=== PATIENT | male | born 1985 | race Caucasian/White ===

== ENCOUNTER → 2017-01-21 | Outpatient (CLI) | payer OTHER ==
--- NOTE | 2017-01-21 09:16 | XR ---
EXAMINATION TYPE: XR chest 2V DATE OF EXAM: 01/21/2017 9:07 AM COMPARISON: NONE HISTORY: Ventricular tachycardia, COPD TECHNIQUE: Frontal and lateral views of the chest are obtained. FINDINGS: There is no focal air space opacity, pleural effusion, or pneumothorax seen. The cardiac silhouette size is within normal limits. The osseous structures are intact. IMPRESSION: No acute cardiopulmonary process.
[2017-01-24 12:06] LABS: Alternaria alternata IgE <0.35 kU/L (<0.35); Asperg. fumagatus IgE <0.35 kU/L (<0.35); Asperg. fumagatus IgE Class CLASS 0; Cat Epith & Dander IgE <0.35 kU/L (<0.35); Cat Epith & Dander IgE Class CLASS 0; Clad herbarum IgE <0.35 kU/L (<0.35); Clad herbarum IgE Class CLASS 0; Com. Pigweed IgE <0.35 kU/L (<0.35); Com. Pigweed IgE Class CLASS 0; Common Ragweed IgE Class CLASS 0; Cow's Milk IgE Class CLASS 0; Dermato. farinae IgE <0.35 kU/L (<0.35); Dermato. farinae IgE Class CLASS 0; House Dust (Greer) IgE <0.35 kU/L (<0.35); House Dust (Greer) IgE Class CLASS 0; Maple (Box Elder) IgE <0.35 kU/L (<0.35); Maple (Box Elder) IgE Class CLASS 0; Penicillium notatum IgE Class CLASS 0; Timothy Grass IgE <0.35 kU/L (<0.35); Timothy Grass IgE Class CLASS 0
[2017-01-27 14:49] LABS: Mis test requested (Blood) Hypersens.PneumoEval
== END ==
LOC: RADXRMAIN 08:53
PROVIDERS: ATTEND Internal Medicine Sleep Medicine
DX: J44.9 Chronic obstructive pulmonary disease, unspecified (principal); B44.89 Other forms of aspergillosis
CPT/HCPCS: 71020; 82785; 86001; 86003; 86606; 86609

== ENCOUNTER → 2018-02-20 | Outpatient (CLI) | payer OTHER ==
--- NOTE | 2018-02-20 19:27 | ECHOF ---
Referral Reason:I47.2 Ventricular Tachyarrythemia MEASUREMENTS -------- HEIGHT: 175.3 cm WEIGHT: 108.9 kg BP: 159/98 RVIDd: 3.0 cm (< 3.3) IVSd: 1.3 cm (0.6 - 1.1) LVIDd: 4.7 cm (3.9 - 5.3) LVPWd: 1.3 cm (0.6 - 1.1) IVSs: 1.6 cm LVIDs: 2.8 cm LVPWs: 1.6 cm LAESV Index (A-L): 19.43 ml/m Ao Diam: 4.1 cm (2.0 - 3.7) AV Cusp: 2.2 cm (1.5 - 2.6) EPSS: 0.6 cm MV E Lawrence: 0.83 m/s MV DecT: 244 ms MV A Lawrence: 0.58 m/s MV E/A Ratio: 1.42 MV EF SLOPE: 133.91 mm/s (70 - 150) MV EXCURSION: 2.43 cm (> 18.000) FINDINGS -------- Sinus rhythm. This was a technically adequate study. The left ventricular size is normal. There is mild concentric left ventricular hypertrophy. Overa ll left ventricular systolic function is normal with, an EF between 55 - 60 %. The right ventricle is normal in size and function. Normal LA size by volume 22+/-6 ml/m2. The right atrium is normal in size. The aortic valve is bicuspid. There is mild aortic valve sclerosis. There is [id number] aor tic regurgitation. There is no evidence of aortic stenosis. Mild mitral regurgitation is present. Redundant anterior mitral valve leaflet. Trace tricuspid regurgitation present. Right ventricular systolic pressure is normal at < 35 mmHg. There is no evidence of pulmonary hypertension. Trace/mild (physiologic) pulmonic regurgitation. The aortic root is mildy dilated up to 4.1 cm. IVC Not well visulized. There is no pericardial effusion. CONCLUSIONS -------- 1. Sinus rhythm. 2. This was a technically adequate study. 3. The left ventricular size is normal. 4. There is mild concentric left ventricular hypertrophy. 5. Overall left ventricular systolic function is normal with, an EF between 55 - 60 %. 6. Normal LA size by volume 22+/-6 ml/m2. 7. The aortic valve is bicuspid. 8. There is mild aortic valve sclerosis. 9. Mild mitral regurgitation is present. 10. Redundant anterior mitral valve leaflet. 11. Trace tricuspid regurgitation present. 12. Right ventricular systolic pressure is normal at < 35 mmHg. 13. There is no evidence of pulmonary hypertension. 14. Trace/mild (physiologic) pulmonic regurgitation. 15. The aortic root is mildy dilated up to 4.1 cm. 16. IVC Not well visulized. 17. There is no pericardial effusion. PROGRAMMING SPECIALIST: David Campbell RDCS
== END | disposition home or self-care (01) ==
LOC: RADECHMAIN 15:19
PROVIDERS: ATTEND Internal Medicine Cardiovascular Disease
DX: Q23.1 Congenital insufficiency of aortic valve (principal); I47.2 Ventricular tachycardia
CPT/HCPCS: 93306

== ENCOUNTER → 2018-05-05 | Outpatient (CLI) | payer OTHER ==
[2018-05-06 03:05] LABS: Ragweed,Common IgE <0.10 kU/L
[2018-05-06 03:09] LABS: Alternaria alternata IgE <0.10 kU/L; Birch IgE <0.10 kU/L; Cat Epith & Dander IgE <0.10 kU/L; Cockroach IgE <0.10 kU/L; Dermato. farinae IgE <0.10 kU/L; Dog Dander IgE <0.10 kU/L; Elm IgE <0.10 kU/L; Immunoglobulin E <1.00 IU/mL (0.00-114.00); Maple (Box Elder) IgE <0.10 kU/L; Oak IgE <0.10 kU/L; Red Top (Bentgrass) IgE <0.10 kU/L
[2018-05-06 03:14] LABS: Clam IgE <0.10 kU/L; Codfish IgE <0.10 kU/L; Egg White IgE <0.10 kU/L; Immunoglobulin E <1.00 IU/mL (0.00-114.00); Peanut IgE <0.10 kU/L; Scallop IgE <0.10 kU/L; Shrimp IgE <0.10 kU/L; Soybean IgE <0.10 kU/L; Walnut IgE (Food) <0.10 kU/L
== END | disposition home or self-care (01) ==
LOC: LABWHC1 15:14
PROVIDERS: ATTEND Nurse Practitioner Adult Health
DX: T78.49XA Other allergy, initial encounter (principal)
CPT/HCPCS: 36415; 82785; 86003

== ENCOUNTER → 2018-05-25 | Outpatient (CLI) | payer OTHER ==
--- NOTE | 2018-05-25 14:37 | CT ---
EXAMINATION TYPE: CT abdomen pelvis w con DATE OF EXAM: 05/25/2018 COMPARISON: NONE HISTORY: 32 year-old male shortness of breath and periumbilical pain TECHNIQUE: Contiguous axial scanning of the abdomen and pelvis following administration of 100 ml Iso kacey 300 IV contrast. Delayed images through the kidneys and coronal/sagittal reconstructions perform ed. CT DLP: 2642 mGycm Automated exposure control for dose reduction was used. FINDINGS: Lower thorax reported separately. Liver mildly enlarged measuring 19.3 cm. Low attenuation suggest underlying fatty infiltration. The v enous system is patent. No biliary ductal dilatation. Gallbladder, adrenal glands, kidneys with retroaortic left renal vein, spleen, and pancreas appear wi thin normal limits. No dilated small bowel, free fluid, or free air. Appendix not clearly visualized. No secondary findings of acute appendicitis. Minimal stool burden. Of note, there is focal inflammation along the proximal sigmoid colon with a curvilinear area of cont rast density and focal outpouching suggesting an inflamed diverticulum. Mild to moderate surrounding fat stranding but no free fluid or free air. This is located just deep to the infraumbilical midline. Scattered nonenlarged and borderline prominent mesenteric lymph nodes measure up to 7 mm. Bladder urine distended. Minimal central prostatic calcifications. No abnormal fluid collection in th e pelvis or pelvic lymphadenopathy. Bones: Degenerative disc disease L5-S1 and also within the visualized thoracic spine. IMPRESSION: 1. FOCAL ACUTE DIVERTICULITIS AT THE MID SIGMOID. THERE IS [id number] INFLAMMATION BUT NO FREE FLUID, ABSCESS, OR FREE AIR. 2. HEPATOMEGALY (19.3 CM) WITH HEPATIC STEATOSIS. A Pershing level critical message alert has been initiated for Jerilyn Kelley MD via the [employer] Critical Results System on 05/25/2018 2:35 PM. This message alert has been sent to Jerilyn faulkner MD via the preferences provided by the clinician for the receipt of Radiology Critical Findings. Message ID [id number].
[2018-05-30 23:40] LABS: Alternaria Alternata IgG 4.3 mcg/mL (< 13.6); Aspergillus fumigatus IgG Not detected (Not detected); Aureobasidium pullulans IgG 10.2 mcg/mL (< 13.6); Cladosporium herbarium IgG 36.5 mcg/mL (< 14.7); Phoma ssp. IgG 5.2 mcg/mL (< 6.6); Saccaharomospora viridis Not detected (Not detected); Saccaharopoly. rectivirgula Not detected (Not detected)
== END | disposition home or self-care (01) ==
LOC: RADCTMAIN 12:00
PROVIDERS: ATTEND Internal Medicine Critical Care Medicine
DX: K57.32 Diverticulitis of large intestine without perforation or abscess without bleeding (principal); K76.0 Fatty (change of) liver, not elsewhere classified; R06.00 Dyspnea, unspecified; R05 Cough
CPT/HCPCS: 36415; 74177; 86001; 86606; 86609

== ENCOUNTER → 2018-05-25 | Outpatient (CLI) | payer OTHER ==
--- NOTE | 2018-05-25 14:28 | CT ---
EXAMINATION TYPE: CT chest w con DATE OF EXAM: 05/25/2018 COMPARISON: Correlation radiograph 05/05/2018 HISTORY: 32-year-old male Dyspnea, shortness of breath TECHNIQUE: Contiguous axial scanning of the chest after the administration of 100 ml mL of Isovue 300 . Coronal/sagittal reconstructions performed. CT DLP: DLP with A/PmGycm. Automatic exposure control utilized for a dose reduction. FINDINGS: Heart normal size without pericardial effusion. Unable to exclude the possibility of a bicuspid aortic valve, axial image 35. Aorta is normal caliber with a variant direct takeoff of the left vertebral artery directly from the aortic arch. Some residual thymic tissue is present in the anterior mediastinum. No thoracic lymphadenopathy. A subcutaneous loop recorder present over the left anterior chest. No consolidation or pleural effusion. Nonspecific 3 mm subpleural pulmonary nodule peripheral left ba se. In a low risk patient, no further follow-up is needed. Abdomen reported separately. Bones: Mild degenerative disc disease throughout the thoracic spine. IMPRESSION: 1. Unable to exclude the possibility of a bicuspid aortic valve. Left chest wall loop recorder. 2. No acute pulmonary process. 3. Abdomen and pelvis reported separately.
== END | disposition home or self-care (01) ==
LOC: RADCTMAIN 11:50
PROVIDERS: ATTEND Family Medicine
DX: R06.00 Dyspnea, unspecified (principal); R10.33 Periumbilical pain
CPT/HCPCS: 71260; Q9967

== ENCOUNTER → 2018-08-17 | Outpatient (CLI) | payer OTHER ==
--- NOTE | 2018-08-18 07:06 | US ---
EXAMINATION TYPE: US groin RT DATE OF EXAM: 08/17/2018 COMPARISON: CT 2018 CLINICAL HISTORY: R59.0 Localized Enlarged Lymph Node. Right groin palpable x 1 month US right groin: multiple lymph nodes noted at patient's c/o palpable with largest node seen inferiorl y = 4.2 x 2.1 x 1.3cm. IMPRESSION: Right groin adenopathy.
== END ==
LOC: RADUSWWP 16:49
PROVIDERS: ATTEND Family Medicine
DX: R59.0 Localized enlarged lymph nodes (principal)

== ENCOUNTER → 2018-09-01 | Outpatient (CLI) | payer OTHER ==
--- NOTE | 2018-09-02 13:52 | CT ---
EXAMINATION TYPE: CT pelvis w con DATE OF EXAM: 09/01/2018 COMPARISON: CT abdomen pelvis dated 05/25/2018. HISTORY: Right groin enlarged lymph node. CT DLP: 1201 mGycm Automated exposure control for dose reduction was used. CONTRAST: Standard CT of the pelvis with intravenous contrast was performed. Performed with IV Contrast, patien t injected with 100 mL of Isovue 300. FINDINGS: Centrally within the pelvis, moved posteriorly from the prior CT there is a central fat attenuated pr obable epiploic appendage without inflammatory fat stranding seen on series 3 image 40 and 41. The previously seen borderline mesenteric lymph nodes appear slightly smaller than on the prior now m easuring 6 mm as opposed to 7 mm. No greater than 1 cm short axis lymph node is identified. These mes enteric lymph nodes may have been reactive to the previously seen inflammatory change on the prior CT . No new adenopathy is appreciated. In the visualized portions of the liver there is decreased attenuation relating to hepatic steatosis. And the visualized portion of the uncinate process there is a tiny low density 3 mm lesion on series 3 image 5 that is stable from the prior. No ductal dilatation. The visualized portions of the remaini ng viscera appear grossly unremarkable. Bowel is nondilated. Urinary bladder is unremarkable. Osseous structures appear intact with degenerative changes of the lumbosacral spine that are mild. A very sm all fat filled umbilical hernia is incidentally seen. IMPRESSION: 1. SLIGHT DECREASE IN SIZE OF THE BORDERLINE MESENTERIC LYMPH NODES. NO SUSPICIOUS FINDINGS CURRENTLY . THESE MAY HAVE RELATED TO REACTIVE LYMPH NODES FROM PREVIOUSLY SEEN INFLAMMATORY CHANGE ON THE PRIO R CT. 2. PRESUMED SEQUELA OF PRIOR EPIPLOIC APPENDICITIS WITH NO CURRENT INFLAMMATORY CHANGE. 3. SUBCENTIMETER PANCREATIC UNCINATE PROCESS LESION FAVORED TO REPRESENT A SIDEBRANCH IPMN, HOWEVER M ASSISTANT PROFESSOR OF NURSING IS RECOMMENDED FOR FULL CHARACTERIZATION. 4. PARTIAL VISUALIZATION OF HEPATIC STEATOSIS.
== END | disposition home or self-care (01) ==
LOC: RADCTMAIN 13:54
PROVIDERS: ATTEND Surgery Plastic and Reconstructive Surgery
DX: R59.1 Generalized enlarged lymph nodes (principal); Z88.8 Allergy status to other drugs, medicaments and biological substances
CPT/HCPCS: 72193; Q9967

== ENCOUNTER → 2018-09-20 | Outpatient (CLI) | payer OTHER ==
--- NOTE | 2018-09-20 17:13 | XR ---
EXAMINATION TYPE: XR Hip Complete RT DATE OF EXAM: 09/20/2018 COMPARISON: NONE HISTORY: Right hip pain TECHNIQUE: 2 views FINDINGS: There is no sign of fracture nor dislocation. Joint spaces are normal. Sacroiliac joint caed ears normal. IMPRESSION: Normal right hip exam
== END | disposition home or self-care (01) ==
LOC: RADXRMAIN 16:36
PROVIDERS: ATTEND Family Medicine
DX: M25.551 Pain in right hip (principal)
CPT/HCPCS: 73502

== ENCOUNTER → 2019-02-15 | Outpatient (CLI) | payer OTHER ==
[2019-02-15 10:52] LABS: Basophils # (A) 0.1 k/uL (0-0.2); Basophils % (A) 1 %; Eosinophils # (A) 0.2 k/uL (0-0.7); Eosinophils % (A) 2 %; HCT 47.7 % (39.0-53.0); HGB 16.2 gm/dL (13.0-17.5); Lymphocytes # (A) 2.1 k/uL (1.0-4.8); Lymphocytes % (A) 30 %; MCH 28.8 pg (25.0-35.0); MCHC 33.9 g/dL (31.0-37.0); MCV 84.9 fL (80.0-100.0); Mean Platelet Volume 7.3; Monocytes # (A) 0.4 k/uL (0-1.0); Monocytes % (A) 5 %; Neutrophils # (A) 4.3 k/uL (1.3-7.7); Neutrophils % (A) 60 %; Platelet Count 230 k/uL (150-450); RBC 5.61 m/uL (4.30-5.90); RDW 13.2 % (11.5-15.5); WBC 7.2 k/uL (3.8-10.6)
[2019-02-15 10:58] LABS: INR 0.9 (<1.2); Partial Thromboplastin Time 22.1 sec (22.0-30.0); Prothrombin Time 9.7 sec (9.0-12.0)
[2019-02-15 11:02] LABS: Appearance,Urine Clear (Clear); Bilirubin,Urine Negative (Negative); Blood,Urine Negative (Negative); Color,Urine Yellow; Glucose,Urine (UA) Negative (Negative); Ketones,Urine Negative (Negative); Leukocyte Esterase,Urine Negative (Negative); Mucus,Urine Rare /hpf; Nitrite,Urine Negative (Negative); PH, Urine 5.5 (5.0-8.0); Protein,Urine 1+ (Negative); RBC,Urine <1 /hpf (0-5); Urobilinogen,Urine <2.0 mg/dL (<2.0)
--- NOTE | 2019-02-15 14:24 | XR ---
EXAMINATION TYPE: XR chest 2V DATE OF EXAM: 02/15/2019 COMPARISON: Prior chest x-ray 01/21/2017 HISTORY: Presurgical TECHNIQUE: Frontal and lateral views of the chest are obtained. FINDINGS: Coronary is present over the left chest. There is no focal air space opacity, pleural effusion, or pn eumothorax seen. The cardiac silhouette size is within normal limits. The osseous structures are i ntact. IMPRESSION: No acute cardiopulmonary process.
[2019-02-15 16:48] LABS: Albumin 4.9 g/dL (3.80-4.90); Albumin/Globulin Ratio 2.45 (1.60-3.17); Anion Gap 10.9 mmol/L (4.00-12.00); Calcium 9.5 mg/dL (8.7-10.3); Carbon Dioxide 24.1 mmol/L (21.6-31.8); Potassium 4.3 mmol/L (3.5-5.5); Total Bilirubin 0.9 mg/dL (0.3-1.2); Total Protein 6.9 g/dL (6.2-8.2)
== END | disposition home or self-care (01) ==
LOC: LABWHC1 09:35
PROVIDERS: ATTEND Neurological Surgery
DX: Z01.818 Encounter for other preprocedural examination (principal); Z01.812 Encounter for preprocedural laboratory examination; M50.122 Cervical disc disorder at C5-C6 level with radiculopathy
CPT/HCPCS: 36415; 71046; 80053; 81001; 85025; 85610; 85730; 87070

== ENCOUNTER → 2019-04-12 | Outpatient (CLI) | payer OTHER ==
--- NOTE | 2019-04-12 13:57 | XR ---
Cervical spine with flexion and extension views HISTORY: Status post discectomy, cervical disc disorder with radiculopathy 8 views of the cervical spine No comparisons Patient is status post discectomy at C5-6. There is near anatomic alignment. Cervical vertebral kristy s show preserved height and bone mineralization. Multilevel spondylosis is present. Loss of disc at C 2-3, C3-4, C4-5. Minimal anterolisthesis grade 1 C5-6 is not significantly changed on flexion and ext ension views. No significant foraminal encroachment. IMPRESSION: Surgical follow-up.
== END | disposition home or self-care (01) ==
LOC: RADXRMAIN 11:54
PROVIDERS: ATTEND Neurological Surgery
DX: M50.122 Cervical disc disorder at C5-C6 level with radiculopathy (principal); Z98.890 Other specified postprocedural states
CPT/HCPCS: 72052

== ENCOUNTER → 2019-04-25 | Outpatient (CLI) | payer OTHER ==
--- NOTE | 2019-04-25 22:48 | MR ---
EXAMINATION TYPE: MR lumbar spine wo con DATE OF EXAM: 04/25/2019 COMPARISON: CT abdomen and pelvis May 25, 2018 HISTORY: Lumbar region radiculopathy per order. New back pain into bilateral lower extremities for 10 months per patient. TECHNIQUE: Multiplanar, multisequence imaging of the lumbar spine is performed without IV contrast. FINDINGS: Sagittal images of the lumbar spine show vertebral body heights and alignment to appear sat isfactory. There is disc desiccation with mild disc space narrowing and posterior disc herniations id entified at L2-L3 and L5-S1 levels. The conus medullaris is normal in position and signal ending inf erior L1 level. The bone marrow signal intensity is within normal limits. Mild multilevel anterior s purring is present. Axial images show the T12-L1 level to appear within normal limits. Axial images at the L1-L2 level show mild broad-based posterior disc protrusion minimally effacing an terior thecal sac, bilateral neural foramina are patent. Axial images at L2-L3 level show annular tear and broad-based central disc protrusion effacing the an terior thecal sac on axial image 21 not clearly identified on CT, bilateral neuroforamina are patent. Axial images at L3-L4 level shows mild broad-based disc bulge mildly effacing anterior thecal sac. Axial images at L4-L5 level shows mild facet degenerative changes bilaterally. Axial images at the L5-S1 level mild to moderate facet degenerative changes bilaterally with broad-ba sed right paracentral disc protrusion effacing the anterior thecal sac and right lateral recess on ax ial image 4 and causing moderate right-sided inferior neural foraminal narrowing likely encroaching o n the inferior margin of the exiting right L5 nerve. Left-sided neural foramen is patent. There herni ation may be present on comparison CT. IMPRESSION: Multilevel degenerative changes in the lumbar spine most prominent at L2-L3 and L5-S1 lev el as detailed above.
== END | disposition home or self-care (01) ==
LOC: RADMRIMAIN 19:54
PROVIDERS: ATTEND Neurological Surgery
DX: M47.26 Other spondylosis with radiculopathy, lumbar region (principal); M47.27 Other spondylosis with radiculopathy, lumbosacral region
CPT/HCPCS: 72148

== ENCOUNTER → 2019-05-07 | Outpatient (CLI) | payer OTHER ==
--- NOTE | 2019-05-07 14:28 | XR ---
EXAM TYPE: LUMBAR SPINE X RAY SERIES COMPARISON: NONE HISTORY: Low back pain TECHNIQUE: 4 views are submitted. FINDINGS: Alignment is anatomic. The pedicles are intact. The transverse processes are intact. There is no d isc space narrowing at L5-S1. Disc space narrowing at L2-L3. No compression deformities. Slight retro listhesis of L3 relative to L4 on the flexion image appears stable on extension views. Spina bifida o cculta lumbosacral junction. IMPRESSION: 1. Mild multilevel degenerative disc disease with facet arthropathy at L5-S1 suspected
== END | disposition home or self-care (01) ==
LOC: RADXRMAIN 13:57
PROVIDERS: ATTEND Neurological Surgery
DX: M54.16 Radiculopathy, lumbar region (principal)
CPT/HCPCS: 72114

== ENCOUNTER → 2019-06-14 | Outpatient (CLI) | payer OTHER ==
--- NOTE | 2019-06-15 09:11 | XR ---
EXAMINATION TYPE: XR abdomen complete w decub DATE OF EXAM: 06/14/2019 COMPARISON: NONE HISTORY: Pain TECHNIQUE: Supine, upright, and left side down lateral decubitus views of the abdomen are obtained. FINDINGS: Bowel gas pattern is nonspecific. There is a subtle curvature of the spine. No suspicious c alcifications. Retained debris within the colon. IMPRESSION: Nonspecific abdomen
== END | disposition home or self-care (01) ==
LOC: RADXRMAIN 18:43
PROVIDERS: ATTEND Family Medicine
DX: R10.32 Left lower quadrant pain (principal)
CPT/HCPCS: 74021

== ENCOUNTER 2019-06-29 11:53 | Day surgery (SDC) | payer OTHER ==
[2019-06-27 09:45] VITALS: BMI 36.6
[~2019-06-29 11:53] MED LIST: LACTATED RINGERS 1,000 ML IV SCH
[2019-06-29 12:47] VITALS: TEMP 97.8
[2019-06-29] MEDS ORDERED: LIDOCAINE 1% 20 ML VIAL (10MG/ML) FOR IV START INTRADERMA ONE (12:50)
[2019-06-29] MEDS ORDERED: PROPOFOL 10 MG/ML 20 ML VIAL IV ONE (13:00)
--- NOTE | 2019-06-29 13:17 | P.PCN ---
Date of Procedure: 06/29/19 Procedure(s) Performed: BRIEF HISTORY: Patient is a 33-year-old pleasant male, scheduled for an elective colonoscopy as a part of evaluation of recurrent sigmoid diverticulitis for the last 2 years duration. He had 3 episodes of acute sigmoid diverticulitis in the last 2 years and the last one was about 3 weeks ago treated with antibiotics. He is doing well now. PROCEDURE PERFORMED: Colonoscopy. PREOPERATIVE DIAGNOSIS: Acute recurrent diverticulitis for the last 2 years duration IV sedation per Anesthesia. PROCEDURE: After informed consent was obtained, the patient, was brought into the endoscopy unit. IV sedation was administered by Anesthesia under continuous monitoring. Digital rectal examination was normal. Initially the Olympus CF-160 flexible video colonoscope was then inserted in the rectum, gradually advanced into the cecum without any difficulty. Careful examination was performed as the scope was gradually being withdrawn. Ileocecal valve and the appendiceal orifice were visualized and appeared normal. Prep was excellent. Mucosa of the cecum, ascending colon, transverse colon, descending colon, sigmoid colon, and rectum appeared normal. Retroflexion was performed in the rectum and no lesions were seen. No evidence of diverticulosis seen. The patient tolerated the procedure well. IMPRESSION: Normal-appearing colon from rectum to cecum with no evidence of colitis or colorectal neoplasia. RECOMMENDATIONS: Findings of this examination were discussed with the patient as well as his family. He was advised to be a high-fiber diet and take fiber supplements a regular basis.
[2019-06-29 13:26] VITALS: RESP 16
[2019-06-29 13:36] VITALS: BP 121/78; PULSE 59
== END 2019-06-29 13:54 | disposition home or self-care (01) ==
LOC: ORWHC2ENDO 11:53
PROVIDERS: ATTEND Internal Medicine Gastroenterology
DX: K57.30 Diverticulosis of large intestine without perforation or abscess without bleeding (principal); I10 Essential (primary) hypertension; F39 Unspecified mood [affective] disorder; Z88.8 Allergy status to other drugs, medicaments and biological substances; Z79.899 Other long term (current) drug therapy
CPT/HCPCS: 45378; J2704

== ENCOUNTER → 2019-08-13 | Outpatient (CLI) | payer OTHER ==
--- NOTE | 2019-08-14 08:47 | XR ---
Cervical spine with flexion and extension HISTORY: Pain, surgery. Exam correlated to prior exam 04/12/2019 8 images submitted of the cervical spine. Multilevel spondylosis is present, disc spaces are stable with some loss of height at intervertebral levels C2-3, C3-4, C4-5. Disc replacement change at C5-6 as on prior exam. Cervical vertebral bodies show preserved height, alignment, and bone mineralization. No evident listhesis on flexion and extens ion views. Prevertebral soft tissues are normal. No significant foraminal encroachment. IMPRESSION: Stable postoperative follow-up. Degenerative disc disease.
== END | disposition home or self-care (01) ==
LOC: RADXRMAIN 18:00
PROVIDERS: ATTEND Neurological Surgery
DX: M50.10 Cervical disc disorder with radiculopathy, unspecified cervical region (principal); Z98.890 Other specified postprocedural states
CPT/HCPCS: 72052

== ENCOUNTER → 2019-09-24 | Outpatient (CLI) | payer OTHER ==
--- NOTE | 2019-09-25 05:03 | CT ---
EXAMINATION TYPE: CT cervical spine wo con DATE OF EXAM: 09/24/2019 COMPARISON: Radiograph 08/13/2019 HISTORY: 34-year-old male Neck pain post C5-C6 disc implant surgery. TECHNIQUE: Contiguous axial scanning of the cervical spine without IV contrast. Coronal and sagittal reconstructions performed. CT DLP: 1006.6 mGycm Automated exposure control for dose reduction was used. FINDINGS: No craniocervical junction abnormality, predental space widening, or prevertebral soft tissue swellin g. Focal metal hardware artifact at the C5-C6 level relating to intervertebral disc prosthesis limits ev aluation of the adjacent endplates and spinal canal at this level. There may be some slight residual posterior osteophytic ridging minimally narrowing the canal to 1 cm AP dimension, refer to series 7 a nd sagittal image 51. Alignment is maintained. Mild degenerative disc disease throughout the cervical spine. Mild facet arthropathy is present throughout as well. At C2-C3, there is mild left neural foraminal stenosis. At C5-C6, there is mild left neuroforaminal stenosis. At C6-C7, left paracentral disc osteophyte complex may mildly narrow the spinal canal to 1 cm in AP d imension and may abut the left ventral cord, refer to series 3 axial image 76. Mild left neuroforamin al stenosis at this level. No prevertebral or paravertebral soft tissue abnormality. IMPRESSION: 1. C5-C6 INTERVERTEBRAL DISC PROSTHESIS WITH FOCAL METAL ARTIFACTS LIMITING ASSESSMENT OF THE SPINAL CANAL. THERE MAY BE SOME RESIDUAL POSTERIOR OSTEOPHYTIC RIDGING AT THIS LEVEL MINIMALLY NARROWING THE SPINAL CANAL TO 1 CM AP DIMENSION. MILD LEFT NEURAL FORAMINAL STENOSIS HERE. 2. MILD MULTILEVEL DEGENERATIVE DISC DISEASE AND SCATTERED MILD FACET ARTHROPATHY. 3. LEFT PARACENTRAL DISC OSTEOPHYTE COMPLEX AT C6-C7 MILDLY NARROWS THE SPINAL CANAL. MILD LEFT NEURO FORAMINAL STENOSIS HERE. 4. ADDITIONAL MILD LEFT NEURAL FORAMINAL STENOSIS AT C2-C3.
== END | disposition home or self-care (01) ==
LOC: RADCTMAIN 17:01
PROVIDERS: ATTEND Neurological Surgery
DX: M48.02 Spinal stenosis, cervical region (principal); M50.30 Other cervical disc degeneration, unspecified cervical region; M46.92 Unspecified inflammatory spondylopathy, cervical region
CPT/HCPCS: 72125

== ENCOUNTER → 2019-10-01 | Outpatient (CLI) | payer OTHER ==
--- NOTE | 2019-10-01 20:19 | MR ---
MRI CERVICAL SPINE: CLINICAL HISTORY: Cervical disc disorder per order. Headaches with neck pain causing bilateral arm we akness and pain with history of surgery per patient. TECHNIQUE: Multiplanar, multisequence imaging of the cervical spine is performed without IV contrast. COMPARISON: CT cervical spine September 24, 2019 FINDINGS: Sagittal images of the cervical spine show the craniocervical junction to remain within nor mal limits. There is prominent blooming artifact from metallic disc spacer C5-C6 level making evaluat ion near this level suboptimal. The cervical and upper thoracic spinal cord is otherwise normal in co urse, caliber, and signal. Vertebral alignment is anatomic. The vertebral body and intravertebral d isk heights are normal above C5 and below C6 levels. The bone marrow signal intensity is within norm al limits. Axial images at C2-C3 level shows mild left-sided neural foraminal narrowing due to uncovertebral fac et spurring. Axial images at C3-C4 level are within normal limits. Axial images at C4-C5 level show uncovertebral facet spurring causing mild to moderate left-sided catherine ral foraminal narrowing. Axial images at C5-C6 level are nondiagnostic. Axial images at C6-C7 level showed broad based left precentral disc protrusion mildly facing anterola teral thecal sac and causing mild/moderate right-sided neural foraminal narrowing on axial image 18. Axial images at C7-T1 level are within normal limits. IMPRESSION: Postsurgical change C5-C6 level. Multilevel degenerative changes as detailed above with d isc herniation noted at C6-C7 level.
== END | disposition home or self-care (01) ==
LOC: RADMRIMAIN 19:25
PROVIDERS: ATTEND Neurological Surgery
DX: M50.123 Cervical disc disorder at C6-C7 level with radiculopathy (principal); M47.22 Other spondylosis with radiculopathy, cervical region; M51.86 Other intervertebral disc disorders, lumbar region; Z98.890 Other specified postprocedural states
CPT/HCPCS: 72141

== ENCOUNTER → 2019-11-16 | Outpatient (CLI) | payer OTHER ==
--- NOTE | 2019-11-16 11:48 | XR ---
EXAMINATION TYPE: XR lumbosacral spine min 4V DATE OF EXAM: 11/16/2019 CLINICAL HISTORY: pain COMPARISON: NONE TECHNIQUE: Frontal, lateral, and oblique images of the lumbar spine are obtained. FINDINGS: There are 5 lumbar type vertebral bodies identified. The lumbar spine shows satisfactory alignment without evidence of acute fracture or dislocation. Vertebral body heights are within normal limits. Disc spaces are well preserved. The overlying soft tissue appears unremarkable. IMPRESSION: No acute fracture or dislocation is seen in the lumbar spine.ICD 10 NO FRACTURE, INITIAL EVALUATION
== END | disposition home or self-care (01) ==
LOC: RADXRMAIN 10:48
PROVIDERS: ATTEND Family Medicine
DX: M54.41 Lumbago with sciatica, right side (principal)
CPT/HCPCS: 72110

== ENCOUNTER 2019-11-24 19:41 | Emergency (ER) | payer OTHER ==
[2019-11-24 19:49] VITALS: TEMP 98.3
[2019-11-24] MEDS ORDERED: IPRATROPIUM-ALBUTEROL 3 ML NEB INHALATION STA (20:23)
--- NOTE | 2019-11-24 20:46 | XR ---
EXAMINATION TYPE: XR chest 2V DATE OF EXAM: 11/24/2019 COMPARISON: 02/15/2019 HISTORY: Cough TECHNIQUE: 2 views FINDINGS: Heart and mediastinum are normal. Lungs are clear. Diaphragm is normal. Bony thorax appears normal. Pulmonary vascularity is normal. IMPRESSION: Normal chest. No change.
--- NOTE | 2019-11-24 22:03 | ED ---
General Adult HPI - General Chief complaint: Upper Respiratory Infection Stated complaint: Cough Time Seen by Provider: 11/24/19 20:08 Source: family, RN notes reviewed Mode of arrival: ambulatory Limitations: no limitations - History of Present Illness Initial comments: 34-year-old male with a past medical history of hypertension presents to the emergency department for a chief complaint of cough. Patient has had a cough for the past 3 weeks. States cough is productive. States that when he is walking he gets into coughing fits to the point where he is gagging. States that this causes him to be short of breath. States at baseline patient denies any shortness of breath. Denies chest pain except when coughing. Patient denies smoking history. Patient was on an antibiotic his first week of cough. He is now on an inhaler. Patient is ALLERGIC to steroids. Patient has no other complaints at this time including shortness of breath, chest pain, abdominal pain, nausea or vomiting, headache, or visual changes. - Related Data Home Medications Medication Instructions Recorded Confirmed Carvedilol [Coreg] 6.25 mg PO BID 06/27/19 06/29/19 Escitalopram [Lexapro] 10 mg PO HS 06/27/19 06/29/19 NIFEdipine [NIFEdipine ER] 60 mg PO HS 06/27/19 06/29/19 Allergies Allergy/AdvReac Type Severity Reaction Status Date / Time prednisone Allergy FLUSHED Verified 11/24/19 19:46 FACE, INCREASED HEART RATE, Review of Systems ROS Statement: Those systems with pertinent positive or pertinent negative responses have been documented in the HPI. ROS Other: All systems not noted in ROS Statement are negative. Past Medical History Past Medical History: Hypertension Additional Past Medical History / Comment(s): Bicuspid Aortic Valve. DIVERTICULOSIS History of Any Multi-Drug Resistant Organisms: None Reported Past Surgical History: Orthopedic Surgery Additional Past Surgical History / Comment(s): C5-C6 REPLACEMENT Past Anesthesia/Blood Transfusion Reactions: Postoperative Nausea & Vomiting (PONV) Past Psychological History: Anxiety Smoking Status: Never smoker - Past Family History Mother Family Medical History: No Reported History General Exam Limitations: no limitations General appearance: alert, in no apparent distress Head exam: Present: atraumatic, normocephalic, normal inspection Eye exam: Present: normal appearance, PERRL, EOMI. Absent: scleral icterus, conjunctival injection, periorbital swelling ENT exam: Present: normal exam, mucous membranes moist Neck exam: Present: normal inspection, full ROM. Absent: tenderness, meningismus, lymphadenopathy Respiratory exam: Present: decreased breath sounds. Absent: respiratory distress, wheezes, rales, rhonchi, stridor Cardiovascular Exam: Present: regular rate, normal rhythm, normal heart sounds. Absent: systolic murmur, diastolic murmur, rubs, gallop, clicks GI/Abdominal exam: Present: soft, normal bowel sounds. Absent: distended, tenderness, guarding, rebound, rigid Extremities exam: Absent: calf tenderness Course Vital Signs 11/24/19 11/24/19 11/24/19 19:46 19:49 20:03 Temperature 98.3 F Pulse Rate 93 Respiratory 18 20 Rate Blood Pressure 189/107 O2 Sat by Pulse 96 95 Oximetry 11/24/19 11/24/19 11/24/19 20:15 20:39 20:46 Temperature Pulse Rate 87 88 Respiratory 18 18 Rate Blood Pressure 148/83 O2 Sat by Pulse 96 Oximetry Medical Decision Making - Medical Decision Making Vitals are stable. Patient is 96% on room air. Patient initially hypertensive however this did improve. Does have diminished lung sounds. Minimal wheezing noted in the bases. Patient is not in any respiratory distress. Patient is PERC negative. Chest x-ray shows a normal chest. No change. Patient has tried Z-Callum as well as inhaler. We did do a breathing treatment here in the emergency department. At this time I suspect patient likely has a bronchitis. Patient is ALLERGIC to steroids so cannot start him on this. At this point I will continue the inhaler and [id number] medications. I would follow-up with his primary care provider. States he will follow-up Tuesday. If he has any worsening symptoms to return to the emergency department. Case discussed with Dr beltran Disposition Clinical Impression: Cough Disposition: HOME SELF-CARE Condition: Good Instructions (If sedation given, give patient instructions): Acute Cough (ED) Additional Instructions: Please continue inhaler. Follow-up with primary care on Tuesday. Return to the emergency department if you have any worsening symptoms. Is patient prescribed a controlled substance at d/c from ED?: No Referrals: Lizz Scherer MD [Primary Care Provider] - 1-2 days Time of Disposition: 22:02
[2019-11-24 22:33] VITALS: RESP 20
[2019-11-24 22:34] VITALS: BP 117/74
[2019-11-24 22:35] VITALS: PULSE 92
== END 2019-11-24 22:35 | disposition home or self-care (01) ==
LOC: EC 19:41
DX: R05 Cough (principal); I10 Essential (primary) hypertension; R09.89 Other specified symptoms and signs involving the circulatory and respiratory systems; R06.2 Wheezing; R06.02 Shortness of breath; F41.9 Anxiety disorder, unspecified; Z88.8 Allergy status to other drugs, medicaments and biological substances; Z79.899 Other long term (current) drug therapy
CPT/HCPCS: 71046; 94640; 99285

== ENCOUNTER → 2019-12-03 | Outpatient (CLI) | payer OTHER ==
[2019-12-03 14:29] LABS: Basophils # (A) 0.1 k/uL (0-0.2); Basophils % (A) 1 %; Eosinophils # (A) 0.2 k/uL (0-0.7); Eosinophils % (A) 3 %; HCT 49.6 % (39.0-53.0); HGB 16.5 gm/dL (13.0-17.5); Lymphocytes % (A) 31 %; MCH 28.2 pg (25.0-35.0); MCHC 33.3 g/dL (31.0-37.0); MCV 84.7 fL (80.0-100.0); Mean Platelet Volume 7.7; Monocytes # (A) 0.3 k/uL (0-1.0); Monocytes % (A) 4 %; Neutrophils # (A) 3.9 k/uL (1.3-7.7); Neutrophils % (A) 60 %; Platelet Count 279 k/uL (150-450); RBC 5.85 m/uL (4.30-5.90); RDW 12.6 % (11.5-15.5); WBC 6.5 k/uL (3.8-10.6)
[2019-12-03 15:37] LABS: Appearance,Urine Clear (Clear); Bilirubin,Urine Negative (Negative); Blood,Urine Negative (Negative); Color,Urine Yellow; Glucose,Urine (UA) Negative (Negative); Ketones,Urine Negative (Negative); Leukocyte Esterase,Urine Negative (Negative); Nitrite,Urine Negative (Negative); PH, Urine 5.5 (5.0-8.0); Protein,Urine Trace (Negative); Specific Gravity,Urine 1.024 (1.001-1.035); Urobilinogen,Urine <2.0 mg/dL (<2.0)
[2019-12-03 19:55] LABS: African American GFR (CKD) 129.6 (60.0-200.0); Albumin 4.9 g/dL (3.80-4.90); Albumin/Globulin Ratio 2.33 (1.60-3.17); Anion Gap 9.9 mmol/L (4.00-12.00); BUN/Creat Ratio 15.56 Ratio (12.00-20.00); Carbon Dioxide 24.1 mmol/L (21.6-31.8); Globulin 2.1 g/dL (1.6-3.3); Non-African American GFR(CKD) 111.8 (60.0-200.0); Total Bilirubin 0.7 mg/dL (0.3-1.2)
== END | disposition home or self-care (01) ==
LOC: LABWHC1 13:34
PROVIDERS: ATTEND Neurological Surgery
DX: M51.16 Intervertebral disc disorders with radiculopathy, lumbar region (principal)
CPT/HCPCS: 36415; 80053; 81003; 85025; 85730; 86850; 86900; 86901; 87070

== ENCOUNTER → 2020-02-01 | Outpatient (CLI) | payer OTHER ==
--- NOTE | 2020-02-01 10:16 | XR ---
EXAM TYPE: LUMBAR SPINE X RAY SERIES COMPARISON: 11/16/2019 HISTORY: Pain TECHNIQUE: 8 views are submitted routine flexion and extension lateral. FINDINGS: Alignment is anatomic. The pedicles are intact. The transverse processes are intact. There is post surgical change at L2-L3 appears in near-anatomic alignment. Facet arthropathy L4-5 and L5-S1 noted w ith degenerative disc disease L5-S1. Upon flexion and extension alignment remains similar. IMPRESSION: 1. Postoperative change appears stable in flexion and extension views. 2. Suspect degenerative disc disease and facet arthropathy lower lumbar spine
== END | disposition home or self-care (01) ==
LOC: RADXRMAIN 09:33
PROVIDERS: ATTEND Neurological Surgery
DX: M50.122 Cervical disc disorder at C5-C6 level with radiculopathy (principal); M51.86 Other intervertebral disc disorders, lumbar region; M54.16 Radiculopathy, lumbar region; I10 Essential (primary) hypertension; Z98.890 Other specified postprocedural states
CPT/HCPCS: 72114

== ENCOUNTER → 2021-01-30 | Outpatient (CLI) | payer OTHER ==
--- NOTE | 2021-02-01 00:09 | MR ---
EXAMINATION TYPE: MR shoulder RT wo con DATE OF EXAM: 01/30/2021 COMPARISON: None HISTORY: Rt shoulder pain Multiplanar multiecho imaging of the right shoulder was performed without contrast. Biceps tendon is intact. Glenoid kayleigh appear intact. Subscapularis tendon is intact. There is no whit dence of shoulder joint effusion. The supraspinatus tendon is intact. There is no retraction. I see no subacromial impingement. AC join t appears intact. There is no evidence of bony destructive process. Exam limited slightly by patient' s size. There is tiny degenerative cysts in the greater tuberosity of the humerus. IMPRESSION: No evidence of rotator cuff tear. Small degenerative cysts in the greater tuberosity of the humerus. No fracture.
== END ==
LOC: RADMRIMAIN 13:04
PROVIDERS: ATTEND Orthopaedic Surgery
DX: M85.622 Other cyst of bone, left upper arm (principal)

== ENCOUNTER → 2021-02-04 | Outpatient (CLI) | payer OTHER ==
[2021-02-04 15:55] LABS: Basophils # (A) 0.1 k/uL (0-0.2); Basophils % (A) 1 %; Eosinophils # (A) 0.2 k/uL (0-0.7); Eosinophils % (A) 3 %; HCT 45.2 % (39.0-53.0); HGB 15.8 gm/dL (13.0-17.5); Lymphocytes # (A) 2.5 k/uL (1.0-4.8); Lymphocytes % (A) 34 %; MCH 29.2 pg (25.0-35.0); MCV 83.4 fL (80.0-100.0); Mean Platelet Volume 7.8; Monocytes # (A) 0.4 k/uL (0-1.0); Monocytes % (A) 6 %; Neutrophils # (A) 3.9 k/uL (1.3-7.7); Neutrophils % (A) 54 %; Platelet Count 246 k/uL (150-450); RBC 5.42 m/uL (4.30-5.90); RDW 12.6 % (11.5-15.5); WBC 7.2 k/uL (3.8-10.6)
[2021-02-04 16:22] LABS: Potassium 4.2 mmol/L (3.5-5.1)
== END | disposition home or self-care (01) ==
LOC: LABPAT 15:27
PROVIDERS: ATTEND Orthopaedic Surgery
DX: G56.01 Carpal tunnel syndrome, right upper limb (principal)
CPT/HCPCS: 80051; 85025

== ENCOUNTER 2021-02-11 11:09 | Day surgery (SDC) | payer OTHER ==
[2021-02-09 15:05] VITALS: BMI 39.9
--- NOTE | 2021-02-10 15:36 | HP ---
HISTORY AND PHYSICAL DATE OF SURGERY: 02/11/2021 Maximilian Fragoso is a 35-year-old gentleman seen with symptomatic right carpal tunnel syndrome. We discussed treatment options. He elected to proceed with decompression of right median nerve. Consent was obtained. PAST MEDICAL HISTORY: Hypertension. PAST SURGICAL HISTORY: Noncontributory. DAILY MEDICATIONS: Metoprolol, Lexapro. ALLERGIES: METHYLPREDNISOLONE. SOCIAL HISTORY: He denies tobacco use. PHYSICAL EVALUATION OF THE RIGHT HAND: He has a positive carpal compression and carpal Tinel's exacerbation with numbness and tingling throughout the median nerve distribution. There is some decreased sensation throughout the median nerve distribution. There is a good radial pulse. No tenderness along the A1 rush areas. Good perfusion distally. RADIOGRAPHS: Radiographs of the right wrist failed to reveal any osseous abnormality. A previous EMG of the right upper extremity revealed moderate to severe right carpal tunnel syndrome. IMPRESSION: 1. Right carpal tunnel syndrome. 2. Hypertension. PLAN: Decompression, right median nerve. MMODL / IJN: [id number] /
[~2021-02-11 11:09] MED LIST changes: +HYDROmorphone 0.5 MG/0.5 ML SYRINGE IVP PRN; -LACTATED RINGERS 1,000 ML IV SCH; +LIDOCAINE 1% (10MG/ML) FOR IV START INTRADERMA PRN; +METOCLOPRAMIDE 5 MG/ML 2 ML VIAL IVP PRN; +ONDANSETRON 4 MG/2 ML VIAL IVP PRN; +ceFAZolin 3 GM in SODIUM CHLORIDE 0.9% 100 ML IVPB PRN
[2021-02-11] MEDS: LACTATED RINGERS 1,000 ML IV SCH ×2 (11:31→11:50)
[2021-02-11 12:05] VITALS: TEMP 97.7
[2021-02-11] MEDS ORDERED: BUPIVACAINE (PF) 0.25% 30 ML VIAL SQ ONE ×2 (12:33→12:53)
[2021-02-11] MEDS ORDERED: MIDAZOLAM 2 MG/2 ML VIAL ONE (12:41)
[2021-02-11] MEDS ORDERED: fentaNYL (PF) 50 MCG/ML 2 ML AMP ONE (12:41)
[2021-02-11] MEDS ORDERED: PROPOFOL 10 MG/ML 20 ML VIAL IV ONE (12:41)
[2021-02-11] MEDS ORDERED: SODIUM CHLORIDE 0.9% 100 ML with ceFAZolin 2,000 MG IV ONE ×2 (12:51)
--- NOTE | 2021-02-11 13:10 | P.OP ---
Date of Procedure: 02/11/21 Preoperative Diagnosis: Right carpal tunnel syndrome Postoperative Diagnosis: Right carpal tunnel syndrome Procedure(s) Performed: Decompression right median nerve Anesthesia: MAC, local Surgeon: Madan Schwartz Estimated Blood Loss (ml): 0 Pathology: none sent Condition: stable Disposition: PACU Indications for Procedure: 35-year-old gentleman seen with symptomatic right carpal tunnel syndrome. We discussed treatment options. He elected to proceed with decompression. Operative Findings: See description of procedure Description of Procedure: The patient was taken to the operative suite. The patient received preoperative IV antibiotics. He underwent IV sedation by the department of anesthesia. A well-padded tourniquet was placed along the proximal right upper extremity. The right upper extremity was prepped and draped in the normal sterile orthopedic fashion. I infiltrated the proposed incision site with 10 mL of quarter percent plain Marcaine. When sufficient local analgesia was noted the extremity was elevated and tourniquet was insufflated to 250. I made an incision beginning at the distal volar wrist crease extending distally approximately 3 cm in line with the fourth metacarpal sharply through skin. I dissected down through the palmar fascia to the transverse carpal ligament. I made a small incision through the transverse carpal ligament. I completed the release proximally and distally with blunt Metzenbaums. I noted complete release of the ligament with good decompression of the nerve. There was good hemostasis. The skin margins were proximal nylon suture. Sterile dressings were applied. The tourniquet was released with immediate capillary refill noted. The patient was awakened and transferred to recovery stable condition.
[2021-02-11 13:36] VITALS: RESP 18
[2021-02-11 13:38] VITALS: BP 113/58; PULSE 72
== END 2021-02-11 14:11 | disposition home or self-care (01) ==
LOC: OR 11:09
PROVIDERS: ATTEND Orthopaedic Surgery
DX: G56.01 Carpal tunnel syndrome, right upper limb (principal); I10 Essential (primary) hypertension; Q23.1 Congenital insufficiency of aortic valve; Z79.899 Other long term (current) drug therapy; Z88.8 Allergy status to other drugs, medicaments and biological substances
CPT/HCPCS: 64721; J2250; J2405; J0690; J3010; J2704

== ENCOUNTER 2021-05-07 19:21 | Emergency (ER) | payer OTHER ==
[2021-05-07 19:38] VITALS: RESP 18; TEMP 98
--- NOTE | 2021-05-07 20:02 | XR ---
PROCEDURE: XR cervical spine comp - 6V DATE AND TIME: 05/07/2021 7:56 PM CLINICAL INDICATION: trauma, head and neck pain TECHNIQUE: Department protocol COMPARISON: 08/13/2019 FINDINGS: There is no fracture or malalignment. The soft tissues are unremarkable. IMPRESSION: No acute radiographic process.
--- NOTE | 2021-05-07 20:04 | XR ---
PROCEDURE: XR shoulder complete BILAT - 6V DATE AND TIME: 05/07/2021 7:59 PM CLINICAL INDICATION: trauma, head and neck pain TECHNIQUE: Departmental protocol with 3 views of the right shoulder and 3 views of the left shoulder COMPARISON: None FINDINGS: There is no fracture or malalignment. The soft tissues are unremarkable. IMPRESSION: NO ACUTE PROCESS.
[2021-05-07] MEDS ORDERED: KETOROLAC 15 MG/ML 1 ML VIAL IM STA (20:23)
--- NOTE | 2021-05-07 20:30 | ED ---
General Adult HPI - General Chief complaint: Neck Pain/Injury Stated complaint: In Quicker,neck pain Time Seen by Provider: 05/07/21 19:35 Source: patient, RN notes reviewed, old records reviewed Mode of arrival: ambulatory - History of Present Illness Initial comments: This is a 35-year-old male who presents emergency department stating that he is having some right-sided neck pain. Patient states last night he stood up while he was under a play gym and hit the front of his head on the play gym. Patient states since then he's had pain on the right side of his neck. Patient states when he flexes his head to the right is when he has the pain flexes to the left does not cause him pain. Turning to the right also elicits pain in that area. Patient denies any numbness or weakness in the arms. Patient denies any numbness or weakness in the legs. Patient denies any radiculopathy down the right or left arm. Patient states she is a very mild headache from hitting his head but he is not nauseous she did not pass out and that pain is improving. Patient states he is taking some Motrin and some Tylenol. Patient denies any other injury at this time. - Related Data Home Medications Medication Instructions Recorded Confirmed NIFEdipine [NIFEdipine ER] 60 mg PO HS 06/27/19 02/11/21 Amitriptyline HCl [Elavil] 50 mg PO HS 02/09/21 02/11/21 Escitalopram Oxalate [Lexapro] 20 mg PO HS 02/09/21 02/11/21 Metoprolol(Dose Unknown) 1 tab PO HS 02/09/21 02/11/21 Omeprazole 20 mg PO HS 02/09/21 02/11/21 Previous Rx's Medication Instructions Recorded traMADol HCl [Ultram] 50 mg PO Q6H PRN #10 tab 02/11/21 Ketorolac [Toradol] 10 mg PO Q6HR #15 tab 05/07/21 Allergies Allergy/AdvReac Type Severity Reaction Status Date / Time prednisone Allergy FLUSHED Verified 05/07/21 19:38 FACE, INCREASED HEART RATE, Review of Systems ROS Statement: Those systems with pertinent positive or pertinent negative responses have been documented in the HPI. ROS Other: All systems not noted in ROS Statement are negative. Past Medical History Past Medical History: Hypertension Additional Past Medical History / Comment(s): Bicuspid Aortic Valve. DIVERTICULOSIS History of Any Multi-Drug Resistant Organisms: None Reported Past Surgical History: Orthopedic Surgery Additional Past Surgical History / Comment(s): C5-C6 REPLACEMENT, L5-S1, L2 (fusion and laminectomy). Past Anesthesia/Blood Transfusion Reactions: Postoperative Nausea & Vomiting (PONV) Past Psychological History: Anxiety Smoking Status: Never smoker Past Alcohol Use History: None Reported Past Drug Use History: None Reported - Past Family History Mother Family Medical History: No Reported History General Exam - General Exam Comments Initial Comments: GENERAL: Patient is well-developed and well-nourished. Patient is nontoxic and well- hydrated and is in mild distress. ENT: Neck is soft and supple. No significant lymphadenopathy is noted. Oropharynx is clear. Moist mucous membranes. Patient has pain with flexion to the right and turning to the right. Area of pain is in the right trapezius muscle. EYES: The sclera were anicteric and conjunctiva were pink and moist. Extraocular movements were intact and pupils were equal round and reactive to light. Eyelids were unremarkable. SKIN: Skin is clear with no lesions or rashes and otherwise unremarkable. NEUROLOGIC: Patient is alert and oriented x3. Cranial nerves II through XII are grossly intact. Motor and sensory are also intact. Normal speech, volume and content. Symmetrical smile MUSCULOSKELETAL: Normal extremities with adequate strength and full range of motion. LYMPHATICS: No significant lymphadenopathy is noted PSYCHIATRIC: Normal psychiatric evaluation Course Vital Signs 05/07/21 19:34 Temperature 98.0 F Pulse Rate 87 Respiratory 18 Rate Blood Pressure 163/95 O2 Sat by Pulse 95 Oximetry Medical Decision Making - Medical Decision Making C-spine is negative for any acute abnormality. Shoulder x-rays are negative for any acute abnormality. Disposition Clinical Impression: Strain of neck muscle Disposition: HOME SELF-CARE Instructions (If sedation given, give patient instructions): Cervical Strain (ED) Prescriptions: Ketorolac [Toradol] 10 mg PO Q6HR #15 tab Is patient prescribed a controlled substance at d/c from ED?: No Referrals: Lizz Scherer MD [Primary Care Provider] - 1-2 days Time of Disposition: 20:29
[2021-05-07 20:52] VITALS: BP 174/96; PULSE 76
== END 2021-05-07 20:51 | disposition home or self-care (01) ==
LOC: EC 19:21
DX: S16.1XXA Strain of muscle, fascia and tendon at neck level, initial encounter (principal); I10 Essential (primary) hypertension; W22.8XXA Striking against or struck by other objects, initial encounter; Y93.43 Activity, gymnastics; Y92.39 Other specified sports and athletic area as the place of occurrence of the external cause
CPT/HCPCS: 72050; 96372; 99283

== ENCOUNTER → 2021-09-18 | Outpatient (CLI) | payer OTHER ==
[2021-09-18 22:56] LABS: Basophils # (A) 0.07 X 10*3/uL (0.00-0.10); Basophils % (A) 0.8 %; Eosinophils # (A) 0.11 X 10*3/uL (0.04-0.35); Eosinophils % (A) 1.3 %; HCT 49.6 % (39.6-50.0); HGB 16.9 g/dL (13.0-17.0); Lymphocytes # (A) 2.53 X 10*3/uL (0.90-5.00); Lymphocytes % (A) 30.2 %; MCH 28.4 pg (27.0-32.0); MCHC 34.1 g/dL (32.0-37.0); MCV 83.4 fL (80.0-97.0); Mean Platelet Volume 10.8 fL (9.5-12.2); Monocytes # (A) 0.36 X 10*3/uL (0.20-1.00); Monocytes % (A) 4.3 %; Neutrophils # (A) 5.22 X 10*3/uL (1.80-7.70); Neutrophils % (A) 62.3 %; Platelet Count 308 X 10*3/uL (140-440); RBC 5.95 X 10*6/uL (4.40-5.60); RDW 11.9 % (11.5-14.5); WBC 8.38 X 10*3/uL (4.50-10.00)
[2021-09-19 00:35] LABS: Erythrocyte Sedimentation Rate 6 mm/Hr (0-15)
[2021-09-19 03:14] LABS: % Iron Saturation 21.77 (15.00-50.00); ALT 84 U/L (10-49); AST 54 U/L (14-35); Albumin 4.6 g/dL (3.8-4.9); Alkaline Phosphatase 72 U/L (41-126); BUN/Creat Ratio 9.81 Ratio (12.00-20.00); Blood Urea Nitrogen 8.8 mg/dL (9.0-27.0); Calcium 9.3 mg/dL (8.7-10.3); Carbon Dioxide 21.1 mmol/L (21.6-31.8); Chloride 102 mmol/L (96-109); Creatine Kinase 315 U/L (35-257); Globulin 2.3 g/dL (1.6-3.3); Glucose 174 mg/dL (70-110); Iron 83 ug/dL (65-175); Non-African American GFR(CKD) 110.4 (60.0-200.0); Potassium 3.5 mmol/L (3.5-5.5); Sodium 142 mmol/L (135-145); Total Iron Binding Capacity 379 ug/dL (228-460); Total Protein 6.9 g/dL (6.2-8.2); Uric Acid 7.8 mg/dL (3.7-8.7)
[2021-09-19 05:53] LABS: Rheumatoid Factor, Qnt <10 IU/mL (0-15)
== END | disposition home or self-care (01) ==
LOC: LABWHC1 14:15
PROVIDERS: ATTEND Family Medicine
DX: M25.50 Pain in unspecified joint (principal); G25.81 Restless legs syndrome; L29.9 Pruritus, unspecified
CPT/HCPCS: 36415; 80053; 82550; 82728; 83540; 83550; 84443; 84550; 85025; 85652; 86038; 86140; 86200; 86431; 86618

== ENCOUNTER → 2021-10-09 | Outpatient (CLI) | payer OTHER | END | disposition home or self-care (01) | LOC: LABWHC1 09:48 | PROVIDERS: ATTEND Family Medicine | DX: M79.10 Myalgia, unspecified site (principal); R77.8 Other specified abnormalities of plasma proteins; R73.9 Hyperglycemia, unspecified | CPT/HCPCS: 36415; 82550; 82728; 83036 ==

== ENCOUNTER → 2021-10-27 | Outpatient (CLI) | payer OTHER ==
[2021-10-27 14:30] LABS: Basophils # (A) 0.08 X 10*3/uL (0.00-0.10); Basophils % (A) 1.3 %; Eosinophils # (A) 0.17 X 10*3/uL (0.04-0.35); Eosinophils % (A) 2.8 %; HCT 47.2 % (39.6-50.0); HGB 15.6 g/dL (13.0-17.0); Lymphocytes # (A) 2.03 X 10*3/uL (0.90-5.00); Lymphocytes % (A) 33.2 %; MCH 28.3 pg (27.0-32.0); MCHC 33.1 g/dL (32.0-37.0); MCV 85.7 fL (80.0-97.0); Mean Platelet Volume 11.2 fL (9.5-12.2); Monocytes # (A) 0.35 X 10*3/uL (0.20-1.00); Monocytes % (A) 5.7 %; Neutrophils # (A) 3.47 X 10*3/uL (1.80-7.70); Neutrophils % (A) 56.7 %; Platelet Count 244 X 10*3/uL (140-440); RBC 5.51 X 10*6/uL (4.40-5.60); WBC 6.12 X 10*3/uL (4.50-10.00)
[2021-10-27 16:46] LABS: ALT 87 U/L (10-49); AST 62 U/L (14-35); African American GFR (CKD) 116.7 (60.0-200.0); Albumin 4.5 g/dL (3.8-4.9); Albumin/Globulin Ratio 1.97 (1.60-3.17); Alkaline Phosphatase 62 U/L (41-126); BUN/Creat Ratio 11.75 Ratio (12.00-20.00); Blood Urea Nitrogen 11.4 mg/dL (9.0-27.0); Calcium 9.1 mg/dL (8.7-10.3); Carbon Dioxide 24.3 mmol/L (20.0-27.5); Chloride 105 mmol/L (96-109); Chol/HDL Ratio 7.33 Ratio; Globulin 2.3 g/dL (1.6-3.3); Glucose 102 mg/dL (70-110); LDL Cholesterol,Calculated 145.2 mg/dL (0.0-131.0); Non-African American GFR(CKD) 100.7 (60.0-200.0); Potassium 5.1 mmol/L (3.5-5.5); Sodium 143 mmol/L (135-145); Total Protein 6.8 g/dL (6.2-8.2)
== END | disposition home or self-care (01) ==
LOC: LABWHC1 10:09
PROVIDERS: ATTEND Family Medicine
DX: Z00.00 Encounter for general adult medical examination without abnormal findings (principal)
CPT/HCPCS: 36415; 80053; 80061; 84443; 85025

== ENCOUNTER → 2024-01-11 | Outpatient (CLI) | payer OTHER ==
[2024-01-12 03:46] LABS: Basophils # (A) 0.09 X 10*3/uL (0.00-0.10); Eosinophils # (A) 0.17 X 10*3/uL (0.04-0.35); Lymphocytes # (A) 2.54 X 10*3/uL (0.90-5.00); Lymphocytes % (A) 29.5 %; MCH 29.2 pg (27.0-32.0); MCV 85.8 FL (80.0-97.0); Mean Platelet Volume 11.4 FL (9.5-12.2); Monocytes # (A) 0.58 X 10*3/uL (0.20-1.00); Monocytes % (A) 6.7 %; NRBC Per 100 WBC 0 X 10*3/uL (0.00-0.01); Neutrophils # (A) 5.19 X 10*3/uL (1.80-7.70); Neutrophils % (A) 60.5 %; Platelet Count 251 X 10*3/uL (140-440); RBC 5.48 X 10*6/uL (4.40-5.60); RDW 12.3 % (11.5-14.5)
[2024-01-12 03:56] LABS: ALT 48 U/L (10-49); AST 37 U/L (14-35); Albumin 4.7 g/dL (3.8-4.9); Albumin/Globulin Ratio 1.88 Ratio (1.60-3.17); Alkaline Phosphatase 57 U/L (41-126); BUN/Creat Ratio 16.11 Ratio (12.00-20.00); Blood Urea Nitrogen 14.5 mg/dL (9.0-27.0); C Reactive Protein <0.30 mg/dL (0.00-0.80); Calcium 9.7 mg/dL (8.7-10.3); Carbon Dioxide 26.3 mmol/L (21.6-31.8); Chloride 104 mmol/L (96-109); Globulin 2.5 g/dL (1.6-3.3); Glucose 88 mg/dL (70-110); Potassium 4.1 mmol/L (3.5-5.5); Sodium 142 mmol/L (135-145); Total Bilirubin 0.5 mg/dL (0.3-1.2); Total Protein 7.2 g/dL (6.2-8.2)
[2024-01-12 05:02] LABS: Erythrocyte Sedimentation Rate 9 mm/Hr (0-15)
== END | disposition home or self-care (01) ==
LOC: LABWHC1 15:40
PROVIDERS: ATTEND Internal Medicine
DX: R21 Rash and other nonspecific skin eruption (principal)
CPT/HCPCS: 36415; 80053; 84443; 85025; 85652; 86038; 86140; 86160

== ENCOUNTER 2024-04-02 19:27 | Emergency (ER) | payer OTHER ==
--- NOTE | 2024-04-02 20:17 | ED ---
ENT HPI - General Chief complaint: ENT Stated complaint: L Jaw swollen/pain Time Seen by Provider: 04/02/24 20:16 Source: patient Mode of arrival: ambulatory Limitations: no limitations - History of Present Illness Initial comments: 38-year-old male presenting with chief complaint of left-sided jaw and neck pain. Pain has been ongoing for several days and has been getting gradually worse. He was seen at [facility], he was told that they did not see any swelling and was started on Augmentin for a sinus infection. States that despite the Augmentin his symptoms have been worsening. He does have pain with swallowing. No difficulty breathing. No fevers. No neck stiffness. He has an appointment with ENT on Tuesday - Related Data Home Medications Medication Instructions Recorded Confirmed NIFEdipine [NIFEdipine ER] 60 mg PO HS 06/27/19 02/11/21 Amitriptyline HCl [Elavil] 50 mg PO HS 02/09/21 02/11/21 Escitalopram Oxalate [Lexapro] 20 mg PO HS 02/09/21 02/11/21 Metoprolol(Dose Unknown) 1 tab PO HS 02/09/21 02/11/21 Omeprazole 20 mg PO HS 02/09/21 02/11/21 Previous Rx's Medication Instructions Recorded traMADol HCl [Ultram] 50 mg PO Q6H PRN #10 tab 02/11/21 Ketorolac [Toradol] 10 mg PO Q6HR #15 tab 05/07/21 Clindamycin [Cleocin] 450 mg PO TID 7 Days #63 cap 04/02/24 HYDROcodone/APAP 10-325MG [Uriah 1 tab PO Q6HR PRN 3 Days #12 tab 04/02/24 10-325] Metoprolol Succinate (ER) [Toprol 100 mg PO HS #30 tab 04/02/24 XL] Allergies Allergy/AdvReac Type Severity Reaction Status Date / Time prednisone Allergy FLUSHED Verified 05/07/21 19:38 FACE, INCREASED HEART RATE, Review of Systems ROS Statement: Those systems with pertinent positive or pertinent negative responses have been documented in the HPI. ROS Other: All systems not noted in ROS Statement are negative. Past Medical History Past Medical History: Hypertension Additional Past Medical History / Comment(s): Bicuspid Aortic Valve. DIVERTICULOSIS History of Any Multi-Drug Resistant Organisms: None Reported Past Surgical History: Orthopedic Surgery Additional Past Surgical History / Comment(s): C5-C6 REPLACEMENT, L5-S1, L2 (fusion and laminectomy). Past Anesthesia/Blood Transfusion Reactions: Postoperative Nausea & Vomiting (PONV) Past Psychological History: Anxiety Smoking Status: Never smoker Past Alcohol Use History: None Reported Past Drug Use History: None Reported - Past Family History Mother Family Medical History: No Reported History General Exam - General Exam Comments Initial Comments: Visual Physical Exam Vital signs reviewed General: Patient has swelling to the left sided jaw and appears uncomfortable. Head: Normocephalic, atraumatic Eyes: PERRLA, EOMI ENT: Airway patent Chest: Nonlabored breathing Skin: No visual rash, normal skin tone Neuro: Alert and oriented 3 Musculoskeletal: No gross abnormalities Limitations: no limitations General appearance: alert, in no apparent distress Head exam: Present: atraumatic, normocephalic Eye exam: Present: normal appearance, EOMI Expanded Mouth exam: Present: other (There is a large salivary duct stone under the tongue.) Throat exam: normal inspection Neck exam: Present: normal inspection (There is some swelling to the left sided jaw with little extension into the neck), lymphadenopathy. Absent: meningismus Respiratory exam: Present: normal lung sounds bilaterally. Absent: respiratory distress, wheezes, rales, rhonchi, stridor Cardiovascular Exam: Present: regular rate, normal rhythm, normal heart sounds. Absent: systolic murmur, diastolic murmur, rubs, gallop, clicks Neurological exam: Present: alert, oriented X3 Psychiatric exam: Present: normal affect, normal mood Skin exam: Present: warm, dry Course Vital Signs 04/02/24 04/02/24 20:09 22:40 Temperature 99.1 F Pulse Rate 86 85 Respiratory 20 20 Rate Blood Pressure 207/106 161/84 O2 Sat by Pulse 98 95 Oximetry Medical Decision Making - Medical Decision Making I performed the quick note portion of this visit, electronically signed Tano Figueroa PA-C Was pt. sent in by a medical professional or institution ([facility], RECORDIST CHIEF, urgent care, hospital, or [facility]...) When possible be specific @ -No Did you speak to anyone other than the patient for history (EMS, parent, family, police, friend...)? What history was obtained from this source @ -No Did you review nursing and triage notes (agree or disagree)? Why? @ -I reviewed and agree with nursing and triage notes Were old charts reviewed (outside hosp., previous admission, EMS record, old EKG, old radiological studies, urgent care reports/EKG's, [facility] records)? Report findings @ -No old charts were reviewed Differential Diagnosis (chest pain, altered mental status, abdominal pain women, abdominal pain men, vaginal bleeding, weakness, fever, dyspnea, syncope, headache, dizziness, GI bleed, back pain, seizure, CVA, palpatations, mental health, musculoskeletal)? @ -Differential includes abscess, sialoadenitis, Hi's angina, neoplasm, this is not an all-inclusive list EKG interpreted by me (3pts min.). @ -As above X-rays interpreted by me (1pt min.). @ -None done CT interpreted by me (1pt min.). @ -CT shows mildly swollen left submandibular gland secondary to obstruction of the left submandibular duct by a 10.3 mm calculus U/S interpreted by me (1pt. min.). @ -None done What testing was considered but not performed or refused? (CT, X-rays, U/S, labs)? Why? @ -None What meds were considered but not given or refused? Why? @ -None Did you discuss the management of the patient with other professionals (professionals i.e. , PA, RECORDIST CHIEF, lab, RT, psych nurse, vp digital marketing social media and crm, solar energy consultant and designer, teacher, medical corps officer, egg caser)? Give summary @ -No Was smoking cessation discussed for >3mins.? @ -No Was critical care preformed (if so, how long)? @ -No Were there social determinants of health that impacted care today? How? (Homelessness, low income, unemployed, alcoholism, drug addiction, transportation, low edu. Level, literacy, decrease access to med. care, fdc, rehab)? @ -No Was there de-escalation of care discussed even if they declined (Discuss DNR or withdrawal of care, Hospice)? DNR status @ -No What co-morbidities impacted this encounter? (DM, HTN, Smoking, COPD, CAD, Cancer, CVA, ARF, Chemo, Hep., AIDS, mental health diagnosis, sleep apnea, morbid obesity)? @ -None Was patient admitted / discharged? Hospital course, mention meds given and route, prescriptions, significant lab abnormalities, going to OR and other pertinent info. @ -38-year-old male presented with chief complaint of pain and swelling to the left sided jaw and neck. Symptoms have been worsening for few days. Patient is initially evaluated as a quick note. Lab work shows WBC 11.1. CT shows submandibular gland obstruction with mild swelling due to a 10.3 mm stone. Patient is later brought back to a room and educated on the results. He is given pain medication and he reports improvement in his pain. Patient will be switched from Augmentin to clindamycin. Sent pain medication for home to his pharmacy. He has an appointment with ENT on Tuesday. Educated on alarm symptoms that should prompt reevaluation. Discharged home. Follow-up with PCP. Report back to ER with any new or worsening symptoms. Discussed return parameters and answered all questions. Patient conveyed verbal understanding and agreed to the plan. I discussed this case in detail with my attending Dr. Grace Undiagnosed new problem with uncertain prognosis? @ -No Drug Therapy requiring intensive monitoring for toxicity (Heparin, Nitro, Insulin, Cardizem)? @ -No Were any procedures done? @ -No Diagnosis/symptom? @ -Sialolithiasis Acute, or Chronic, or Acute on Chronic? @ -Acute Uncomplicated (without systemic symptoms) or Complicated (systemic symptoms)? @ -Uncomplicated Side effects of treatment? @ -No Exacerbation, Progression, or Severe Exacerbation? @ -No Poses a threat to life or bodily function? How? (Chest pain, [place], [place], pneumonia, PE, COPD, DKA, ARF, appy, cholecystitis, CVA, Diverticulitis, Homicidal, Suicidal, threat to staff... and all critical care pts) @ -Low likelihood - Lab Data Result diagrams: 04/02/24 20:30 04/02/24 20:30 Lab Results 04/02/24 04/02/24 04/02/24 Range/Units 20:30 20:30 20:30 WBC 11.1 H (3.8-10.6) k/uL RBC 5.78 (4.30-5.90) m/uL Hgb 17.0 (13.0-17.5) gm/dL Hct 50.3 (39.0-53.0) % MCV 87.1 (80.0-100.0) fL MCH 29.4 (25.0-35.0) pg MCHC 33.8 (31.0-37.0) g/dL RDW 12.6 (11.5-15.5) % Plt Count 229 (150-450) k/uL MPV 8.1 Neutrophils % 73 % Lymphocytes % 18 % Monocytes % 5 % Eosinophils % 1 % Basophils % 1 % Neutrophils # 8.1 H (1.3-7.7) k/uL Lymphocytes # 2.0 (1.0-4.8) k/uL Monocytes # 0.6 (0-1.0) k/uL Eosinophils # 0.1 (0-0.7) k/uL Basophils # 0.1 (0-0.2) k/uL Sodium 141 (137-145) mmol/L Potassium 4.2 (3.5-5.1) mmol/L Chloride 109 H (98-107) mmol/L Carbon Dioxide 23 (22-30) mmol/L Anion Gap 9 mmol/L BUN 9 (9-20) mg/dL Creatinine 0.75 (0.66-1.25) mg/dL Est GFR (CKD-EPI)AfAm >90 (>60 ml/min/1.73 sqM) Est GFR (CKD-EPI)NonAf >90 (>60 ml/min/1.73 sqM) Glucose 82 (74-99) mg/dL Plasma Lactic Acid Antonio 1.6 (0.7-2.0) mmol/L Calcium 9.1 (8.4-10.2) mg/dL Total Bilirubin 1.1 (0.2-1.3) mg/dL AST 34 (17-59) U/L ALT 41 (4-49) U/L Alkaline Phosphatase 63 (38-126) U/L C-Reactive Protein 2.9 H (<1.0) mg/dL Total Protein 7.9 (6.3-8.2) g/dL Albumin 4.8 (3.5-5.0) g/dL Disposition Clinical Impression: Sialolithiasis Disposition: HOME SELF-CARE Condition: Good Instructions (If sedation given, give patient instructions): Sialoadenitis (ED) Additional Instructions: Follow-up with ENT. Report back to ER with any new or worsening symptoms. Prescriptions: Clindamycin [Cleocin] 450 mg PO TID 7 Days #63 cap HYDROcodone/APAP 10-325MG [Uriah 10-325] 1 tab PO Q6HR PRN 3 Days #12 tab PRN Reason: Pain Metoprolol Succinate (ER) [Toprol XL] 100 mg PO HS #30 tab Is patient prescribed a controlled substance at d/c from ED?: Yes When asked, does pt state using other controlled substances?: No If prescribed controlled substance>3 days was MAPS reviewed?: Prescribed <3 Days If opioid is for acute pain is fill amount 7 days or less?: Yes Referrals: Lizz Scherer MD [Primary Care Provider] - 1-2 days Time of Disposition: 23:59
[2024-04-02 20:52] VITALS: RESP 20; TEMP 99.1
[2024-04-02 21:06] LABS: Basophils # (A) 0.1 k/uL (0-0.2); Basophils % (A) 1 %; Eosinophils # (A) 0.1 k/uL (0-0.7); Eosinophils % (A) 1 %; HCT 50.3 % (39.0-53.0); Lymphocytes % (A) 18 %; MCH 29.4 pg (25.0-35.0); MCHC 33.8 g/dL (31.0-37.0); MCV 87.1 fL (80.0-100.0); Mean Platelet Volume 8.1; Monocytes # (A) 0.6 k/uL (0-1.0); Monocytes % (A) 5 %; Neutrophils # (A) 8.1 k/uL (1.3-7.7); Neutrophils % (A) 73 %; Platelet Count 229 k/uL (150-450); RBC 5.78 m/uL (4.30-5.90); RDW 12.6 % (11.5-15.5); WBC 11.1 k/uL (3.8-10.6)
[2024-04-02 21:26] LABS: ALT 41 U/L (4-49); AST 34 U/L (17-59); African American GFR (CKD) >90 (>60 ml/min/1.73 sqM); Albumin 4.8 g/dL (3.5-5.0); Alkaline Phosphatase 63 U/L (38-126); Anion Gap 9 mmol/L; Blood Urea Nitrogen 9 mg/dL (9-20); C Reactive Protein 2.9 mg/dL (<1.0); Calcium 9.1 mg/dL (8.4-10.2); Carbon Dioxide 23 mmol/L (22-30); Chloride 109 mmol/L (98-107); Glucose 82 mg/dL (74-99); Non-African American GFR(CKD) >90 (>60 ml/min/1.73 sqM); Potassium 4.2 mmol/L (3.5-5.1); Sodium 141 mmol/L (137-145); Total Bilirubin 1.1 mg/dL (0.2-1.3); Total Protein 7.9 g/dL (6.3-8.2)
--- NOTE | 2024-04-02 21:47 | CT ---
EXAMINATION TYPE: CT soft tissue neck w con DATE OF EXAM: 04/02/2024 9:15 PM COMPARISON: None HISTORY: patient comes in for left jaw pain and swelling that is going up his throat. CT DLP: 659 mGycm Automated exposure control for dose reduction was used. CONTRAST: CT scan of the neck is performed following with IV Contrast, patient injected with 100 mL of Isovue 3 00. Axial images are obtained, coronal and sagittal reformatted images are reviewed. FINDINGS: FINDINGS: There are no supraclavicular lymph nodes. There is no thyroid mass or gross enlargement. The larynx including the cricoid, arytenoid and thyroid cartilages as well as the vocal cords are nor mal and symmetric. The tongue base, epiglottis, aryepiglottic folds, piriform sinuses and vallecula are normal and symme tric. The left submandibular gland is mildly swollen and demonstrates diffuse increased enhancement relativ e to the right submandibular gland.. There is a 10.3 mm calculus in the left submandibular duct causi ng obstruction. The parotid glands are normal and symmetric bilaterally. There is no pharyngeal or parapharyngeal soft tissue mass or enhancement The great vessels of the neck are normal. There is no lymphadenopathy. There is no soft tissue swelling, inflammation or abscess. Mild chronic inflammatory changes in the right maxillary sinus. IMPRESSION: Mildly swollen left submandibular gland secondary to obstruction of the left submandibular duct by a 10.3mm calculus.
[2024-04-02] MEDS: MORPHINE SULFATE 4 MG/ML SYRINGE IVP STA (22:35)
[2024-04-02] MEDS: KETOROLAC 15 MG/ML 1 ML VIAL IVP STA (22:37)
[2024-04-02 23:05] VITALS: BP 161/84; PULSE 85
[2024-04-02] MEDS: HYDROmorphone 1 MG/ML 1 ML SYRINGE IVP STA (23:05)
[2024-04-02] MEDS: METOPROLOL SUCCINATE (ER) 100 MG TAB.ER.24H PO STA (23:05)
[2024-04-03 03:59] LABS: Erythrocyte Sedimentation Rate 24 mm/Hr (0-15)
== END 2024-04-03 01:26 | disposition home or self-care (01) ==
LOC: EC 19:27
DX: K11.5 Sialolithiasis (principal); Z88.8 Allergy status to other drugs, medicaments and biological substances
CPT/HCPCS: 36415; 80053; 85652; 83605; 85025; 86140; 87040; 70491; 99284; 96374; 96375 ×2; J2270; J1170; J1885; Q9967

== ENCOUNTER → 2024-04-30 | Outpatient (CLI) | payer OTHER ==
--- NOTE | 2024-05-04 07:55 | CT ---
EXAMINATION TYPE: CT soft tissue neck w con CT DLP: 815.50 mGycm, Automated exposure control for dose reduction was used. DATE OF EXAM: 04/30/2024 1:38 PM COMPARISON: . CLINICAL INDICATION:Male, 38 years old with history of K11.20 sialoadenitis; PHH, Sialoadenitis of LT submandibular gland TECHNIQUE: Standard enhanced CT of the neck. Axial sections with coronal and sagittal reformats were obtained. Contrast used:100 mL of Isovue 300 with IV Contrast, (None if empty) Oral contrast used: (None if empty) FINDINGS: Brain, orbits, sinuses and spaces of the neck are unremarkable. There are no supraclavicular lymph nodes. There is no thyroid mass or gross enlargement. The larynx i ncluding the cricoid, arytenoid and thyroid cartilages as well as the vocal cords are normal and symm etric. Other: The left submandibular gland is still mildly swollen. The gland density appears symmetric to t he right mandibular gland today. The 10 mm calculus seen in the left submandibular duct is still pres ent. Parotid glands are unremarkable. IMPRESSION 1. No definite evidence for abscess or significant abnormality. 2. Previously identified submandibular duct calculus is unchanged. 3. Left submandibular gland is still slightly enlarged compared to the right.
== END | disposition home or self-care (01) ==
LOC: RADCTMAIN 13:05
PROVIDERS: ATTEND Otolaryngology
DX: K11.5 Sialolithiasis (principal); K11.20 Sialoadenitis, unspecified; K11.8 Other diseases of salivary glands
CPT/HCPCS: 70491; Q9967